=== PATIENT | male | born 1985 | race Caucasian/White ===

== ENCOUNTER 2017-06-20 04:45 | Emergency (ER) | payer SELFPAY ==
[~2017-06-20] VITALS: Ht 175.3 cm; Wt 90.3 kg
[~2017-06-20 04:45] MED LIST: ALB17R INH; CIPR-326 PO; FLUT1DIS28 IH; HYDR-3503 PO; LOR5/325 PO; ONDA4TAB PO; PHEN118S56 PO; PRO25 PO; [UNRECOGNIZED DRUG - OTHER]; zpack
[2017-06-20 04:50] VITALS: BP 132/92
--- NOTE | 2017-06-20 05:06 | ER Report ---
History and Physical Time Seen By MD: 04:59 Hx. of Stated Complaint: SWELLING TO TESTICLES. HPI/ROS CHIEF COMPLAINT: Testicular swelling bilaterally HISTORY OF PRESENT ILLNESS: 32-year-old male presents with one to 2 days of testicular swelling. Patient recalls no specific trauma. He denies dysuria, frequency or hematuria. He states he is sexually active with his partner. Patient notes the right testicle keeps retracting up into the canal. REVIEW OF SYSTEMS: Respiratory: No cough, no dyspnea. Cardiovascular: No chest pain, no palpitations. Gastrointestinal: No vomiting, no abdominal pain. Musculoskeletal: No back pain. Allergies: Coded Allergies: Iodine and Iodide Containing Produc (Verified Allergy, Mild, RASH, SOB, ASTHMA, NV, 06/20/17) Home Meds Active Scripts Doxycycline Hyclate (DOXYCYCLINE HYCLATE) 100 Mg Capsule, 100 MG PO BID for infection, #14 CAPSULE Prov:NANCI LEDESMA DO 06/20/17 Reviewed Nurses Notes: Yes Old Medical Records Reviewed: Yes Hx Smoking: Yes (1 ppd) Exposure to Second Hand Smoke?: Yes Hx Substance Use Disorder: No Hx Alcohol Use: No Constitutional Vital Sign - Last 24 Hours 06/20/17 04:50 Temp 97.8 Pulse 98 Resp 16 B/P (MAP) 132/92 Pulse Ox 100 O2 Delivery Room Air Physical Exam General appearance: Alert no distress. Respiratory: Chest is non tender, lungs are clear to auscultation. Cardiac: Regular rate and rhythm Abdomen: Bowel sounds are intact. Abdomen soft and nontender, there are no hernias Genital: Circumcised male genitalia, testicles with mild swelling. There is tenderness over the epididymis bilaterally. The right testicle appears retracted. There is no inguinal lymphadenopathy, there is no rash DIFFERENTIAL DIAGNOSIS: After history and physical exam differential diagnosis was considered for testicular pain including but not limited to epididymitis, orchitis, referred pain from kidney stone, inguinal hernia, and torsion of the testicle. Medical Decision Making Data Points Laboratory Hematology Test 06/20/17 05:04 Urine Color Xin Urine Clarity Slightly-cloudy Urine pH 5.0 pH (4.8-9.5) Urine Specific [place]lin 1.025 Urine Protein 30 mg/dL (NEGATIVE) Urine Glucose (UA) Negative mg/dL (NEGATIVE) Urine Ketones Trace mg/dL (NEGATIVE) Urine Blood Negative (NEGATIVE) Urine Nitrite Negative (NEGATIVE) Urine Bilirubin Negative (NEGATIVE) Urine Urobilinogen 2.0 mg/dL (0.2-1.9) Urine Leukocyte Esterase Negative (NEGATIVE) Urine RBC 1 /HPF (0-2/HPF) Urine WBC 4 /HPF (0-5/HPF) Urine Squamous Epithelial Cells None /LPF (</=FEW) Urine Bacteria Moderate /HPF (NONE-FEW) Urine Hyaline Casts Few /LPF (NONE-FEW) Urine Mucus Few /HPF (NONE-FEW) Chemistry Test 06/20/17 05:04 Urine Color Xin Urine Clarity Slightly-cloudy Urine pH 5.0 pH (4.8-9.5) Urine Specific [place] 1.025 Urine Protein 30 mg/dL (NEGATIVE) Urine Glucose (UA) Negative mg/dL (NEGATIVE) Urine Ketones Trace mg/dL (NEGATIVE) Urine Blood Negative (NEGATIVE) Urine Nitrite Negative (NEGATIVE) Urine Bilirubin Negative (NEGATIVE) Urine Urobilinogen 2.0 mg/dL (0.2-1.9) Urine Leukocyte Esterase Negative (NEGATIVE) Urine RBC 1 /HPF (0-2/HPF) Urine WBC 4 /HPF (0-5/HPF) Urine Squamous Epithelial Cells None /LPF (</=FEW) Urine Bacteria Moderate /HPF (NONE-FEW) Urine Hyaline Casts Few /LPF (NONE-FEW) Urine Mucus Few /HPF (NONE-FEW) Urinalysis Test 06/20/17 05:04 Urine Color Xin Urine Clarity Slightly-cloudy Urine pH 5.0 pH (4.8-9.5) Urine Specific [place] 1.025 Urine Protein 30 mg/dL (NEGATIVE) Urine Glucose (UA) Negative mg/dL (NEGATIVE) Urine Ketones Trace mg/dL (NEGATIVE) Urine Blood Negative (NEGATIVE) Urine Nitrite Negative (NEGATIVE) Urine Bilirubin Negative (NEGATIVE) Urine Urobilinogen 2.0 mg/dL (0.2-1.9) Urine Leukocyte Esterase Negative (NEGATIVE) Urine RBC 1 /HPF (0-2/HPF) Urine WBC 4 /HPF (0-5/HPF) Urine Squamous Epithelial Cells None /LPF (</=FEW) Urine Bacteria Moderate /HPF (NONE-FEW) Urine Hyaline Casts Few /LPF (NONE-FEW) Urine Mucus Few /HPF (NONE-FEW) ED Course/Re-evaluation ED Course He was minute to an examination room. H&P was done. The differential diagnoses was considered. On clinical examination. Patient has bilateral testicular swelling and pain. There is tenderness over the epididymis is. Ultrasound was ordered. Patient reports he was unable stay through the course of treatment. He needed to leave to take his children's school. The ultrasound is not deemed essential. Patient is covered with doxycycline. He is advised ibuprofen 600 mg 3 times daily. He is advised to follow-up with urology if unimproved in 3-5 days. Decision to Disposition Date: Jun 20, 2017 Decision to Disposition Time: 05:47 Depart Departure Latest Vital Signs Vital Signs Date Time Temp Pulse Resp B/P (MAP) Pulse Ox O2 Delivery O2 Flow Rate FiO2 06/20/17 04:50 97.8 98 16 132/92 100 Room Air Impression: Primary Impression: Orchitis and epididymitis Condition: Improved Disposition: HOME OR SELF-CARE Referrals: CONNOR OJEDA MD, LYLE MD New Scripts Doxycycline Hyclate (DOXYCYCLINE HYCLATE) 100 Mg Capsule 100 MG PO BID for infection, #14 CAPSULE Prov: NANCI LEDESMA DO 06/20/17 Patient Instructions: Epididymitis (ED), Orchitis (ED) Additional Instructions: Take ibuprofen 200 mg 3 tablets 3 times a day with food Follow-up with urology if unimproved in 3-5 days , their numbers were provided NANCI LEDESMA DO Jun 20, 2017 05:06
[2017-06-20] MEDS ORDERED: DOXY-181 PO (05:49)
== END 2017-06-20 06:10 | disposition home or self-care (01) ==
LOC: ER 04:59
DX: N45.2 Orchitis (principal); N45.1 Epididymitis
CPT/HCPCS: 81001; 87491; 87591; 99282

== ENCOUNTER 2018-01-07 02:40 | Emergency (ER) | payer SELFPAY ==
[~2018-01-07 02:40] MED LIST changes: +DOXY-181 PO
[2018-01-07] MEDS ORDERED: KETOROLAC 30 MG/ML VIAL IVP ONE (02:50)
[2018-01-07] MEDS ORDERED: MORPHINE 4 MG/ML SDV IVP ONE (02:50)
[2018-01-07] MEDS ORDERED: NS(*) 0.9% 1000 ML BAG 1,000 ML IV ONE (02:50)
[2018-01-07] MEDS ORDERED: methylPREDNIS SUCC 125 MG/2ML IVP ONE (02:50)
[2018-01-07] MEDS ORDERED: ONDANSETRON 4 MG/2 ML VIAL IVP ONE (02:50)
[2018-01-07] MEDS ORDERED: PROMETHAZINE 25 MG/ML 1 ML AMP IVP ONE (02:50)
[2018-01-07 03:30] VITALS: BP 104/65
[2018-01-07] MEDS ORDERED: PROMETHAZINE HCL 25 MG TAB TH 2 TAB/BOTTLE PO ONE (03:50)
[2018-01-07] MEDS ORDERED: oxyCODONE/ACETAMIN 5/325MG TH 2 TAB/BOTTLE PO ONE (03:50)
[2018-01-07] MEDS ORDERED: OXYC-865 PO (03:53)
[2018-01-07] MEDS ORDERED: PROM-110 PO (03:53)
--- NOTE | 2018-01-07 03:53 | ER Report ---
History and Physical Time Seen By MD: 02:44 Hx. of Stated Complaint: pt was sleeping, felt sharp bite. woke up threw up twice. HPI/ROS CHIEF COMPLAINT: Sick bite, vomiting, severe pain HISTORY OF PRESENT ILLNESS: 32-year-old male woke up with an bite sensation to his lower back. He developed a large welts. He's began vomiting and having severe pain in the area. I suspect he was bitten by an venomous spider. Patient's had multiple episodes of vomiting. He appears very uncomfortable. He slightly pale appearing. He notes no difficulty breathing or throat closing sensation. Patient takes he was bitten in more than one spot. REVIEW OF SYSTEMS: Respiratory: No cough, no dyspnea. Cardiovascular: No chest pain, no palpitations. Gastrointestinal: No vomiting, no abdominal pain. Musculoskeletal: No back pain. Allergies: Coded Allergies: Iodine and Iodide Containing Produc (Verified Allergy, Mild, RASH, SOB, ASTHMA, NV, 06/20/17) Home Meds Active Scripts Promethazine Hcl (PROMETHAZINE HCL) 25 Mg Tablet, 25 MG PO Q4H PRN for NAUSEA/VOMITING, #10 TAB Prov:NANCI LEDESMA DO 01/07/18 Oxycodone Hcl/Acetaminophen (PERCOCET 5-325 MG TABLET) 1 Each Tablet, 1 EACH PO Q4-6H PRN for PAIN, #10 Prov:NANCI LEDESMA DO 01/07/18 Discontinued Scripts Doxycycline Hyclate (DOXYCYCLINE HYCLATE) 100 Mg Capsule, 100 MG PO BID for infection, #14 CAPSULE Prov:NANCI LEDESMA DO 06/20/17 Hx Smoking: Yes (1 ppd) Exposure to Second Hand Smoke?: Yes Hx Substance Use Disorder: No Hx Alcohol Use: No Constitutional Vital Sign - Last 24 Hours 01/07/18 01/07/18 01/07/18 01/07/18 02:44 02:44 02:55 03:10 Pulse 81 79 65 Resp 18 B/P (MAP) 140/100 140/100 (113) Pulse Ox 95 93 92 O2 Delivery Room Air 01/07/18 01/07/18 01/07/18 01/07/18 03:25 03:30 03:40 03:55 Pulse 64 B/P (MAP) 104/65 (78) Pulse Ox 91 94 93 Intake and Output 01/06/18 01/06/1801/07/18 14:59 22:59 06:59 Intake Total 1000 ml Balance 1000 ml Physical Exam General Appearance: The patient is alert, has no immediate need for airway protection and no current signs of toxicity.. Vital signs stable, afebrile HEENT: Pupils equal and round no injection. Oropharynx without redness or exudate. Mucous membranes are moist Respiratory: Chest is non tender, lungs are clear to auscultation. No wheezing or rails Cardiac: regular rate and rhythm Gastrointestinal: Abdomen is soft and non tender, no masses, bowel sounds normal. Musculoskeletal: Neck: Neck is supple and non tender. Back: There is a large welt in the left lumbosacral sacral area with 2 puncture campbell Extremities have full range of motion and are non tender. No edema, no calf tenderness Skin: No rashes or lesions. [ ] DIFFERENTIAL DIAGNOSIS: After history and physical exam differential diagnosis was considered for insect bite, allergic reaction, black spider bite Medical Decision Making ED Course/Re-evaluation Clinical Indication for ER IV: Hydration, IV Access ED Course Patient was admitted to an examination room. H&P was done. The differential diagnoses was considered. On clinical examination. Patient has a obvious spider bite with localized reaction, as well as neuropathic pain. He is treated with IV fluid hydration, Zofran, Toradol, Dilaudid, Solu-Medrol 125 mg. He is monitored for an hour. His symptoms improved. He is discharged home on Phenergan and Percocet. He is advised ibuprofen for additional pain relief. He is cautioned return to the ER for any worsening. Decision to Disposition Date: Jan 07, 2018 Decision to Disposition Time: 03:52 Depart Departure Latest Vital Signs Vital Signs Date Time Temp Pulse Resp B/P (MAP) Pulse Ox O2 Delivery O2 Flow Rate FiO2 01/07/18 03:55 93 01/07/18 03:30 104/65 (78) 01/07/18 03:25 64 01/07/18 02:44 18 Room Air Impression: Primary Impression: Spider bite, venomous Condition: Improved Disposition: HOME OR SELF-CARE Referrals: COREY BOWLING MD, FARRUKH MD New Scripts Promethazine Hcl (PROMETHAZINE HCL) 25 Mg Tablet 25 MG PO Q4H PRN for NAUSEA/VOMITING, #10 TAB Prov: NANCI LEDESMA DO 01/07/18 Oxycodone Hcl/Acetaminophen (PERCOCET 5-325 MG TABLET) 1 Each Tablet 1 EACH PO Q4-6H PRN for PAIN, #10 Prov: NANCI LEDESMA DO 01/07/18 Patient Instructions: Insect Bite or Sting (ED) Additional Instructions: Take Benadryl 25 mg every 6-8 hours as needed for itching Take ibuprofen 200 mg 3 tablets 3 times a day as needed for pain relief Old with primary care if unimproved in 2-4 days NANCI LEDESMA DO Jan 07, 2018 03:53
== END 2018-01-07 04:00 | disposition home or self-care (01) ==
LOC: ER 02:50
DX: T63.301A Toxic effect of unspecified spider venom, accidental (unintentional), initial encounter (principal)
CPT/HCPCS: 96361; 96374; 96375; 99284; J1885; J2270; J2405; J2550; J2930; J7030